=== PATIENT | male | born 1980 | race Caucasian/White ===

== ENCOUNTER 2023-10-29 06:10 | Emergency (ER) | payer BC, SELFPAY ==
[2023-10-29] VITALS (13 sets, daily range): BP systolic 154–179; BP diastolic 105–112; PULSE 70–72; RESP 18–20; TEMP 36.9; O2SAT 95–99
--- NOTE | 2023-10-29 07:13 | PC.NURSE ---
Report given to JOHNNY Chu at this time.
[2023-10-29] MEDS: KETOROLAC 30 MG/ML VIAL (*BKC) IM (07:33)
--- NOTE | 2023-10-29 08:55 | ED.GENADULT ---
HPI - General Adult General Chief complaint: Extremity Injury, Upper Stated complaint: right arm pain Time Seen by Provider: 10/29/23 06:56 Source: patient Mode of arrival: ambulatory Limitations: no limitations History of Present Illness HPI narrative: 43-year-old otherwise healthy here with a complaint of right shoulder and scapular pain for past 1 week. Patient states that he was doing [place] a week ago and he might have injured while he was doing in ever since then he has been having constant pain. Patient states that he went to Urgent Care was given ibuprofen and muscle relaxer which does not seem to be helping. He has stated he was unable to sleep last night because of pain. He denies any chest pain or shortness of breath. Every time he moves the shoulder he gets severe pain in his back Onset (ago): week(s) (1) Location: neck, back (Upper back) and upper extremity Radiation: back Severity: moderate Severity scale (1-10): 8 Quality: aching Pain Consistency: constant Relieving factors: none Exacerbating factors: movement Associated symptoms: denies other symptoms Treatments prior to arrival: NSAID Related Data Allergies Allergy/AdvReac Type Severity Reaction Status Date / Time No Known Allergies Allergy Verified 10/29/23 06:31 Review of Systems Constitutional: Constitutional: Reports no additional constitutional complaints Eyes: Eyes: Reports no additional eye complaints ENT: Reports system reviewed and no additional complaints, except as documented Cardiovascular: Cardiovascular: Reports no additional cardiovascular complaints Respiratory: Respiratory: Reports no additional respiratory complaints Gastrointestinal: Gastrointestinal: Reports no additional gastrointestinal complaints Musculoskeletal: Musculoskeletal: Reports as per HPI Integumentary/Breasts: Skin/Breast: Reports system reviewed and no additional complaints, except as docu Neurologic: Reports system reviewed and no additional complaints, except as documented [facility] Family History Family History Other Family history of coronary artery disease Social History Social History Smoking status: Never smoker Alcohol intake: current Exam Narrative: GENERAL: Well-appearing, well-nourished, and in no acute distress. HEAD: Normocephalic, atraumatic. EYES: PERRLA and EOMI. ENT: Nares clear, no rhinorrhea or epistaxis. Mucous membranes moist. NECK: Supple. CHEST: Clear to auscultation. No respiratory distress. HEART: Regular rate and rhythm. No murmur heard. Normal peripheral pulses. ABDOMEN: Soft, nontender, nondistended, normal active bowel sounds. EXTREMITIES: Normal range of motion. No edema. As painful ROM of the right shoulder no obvious deformity pain along the trapezius margin from the neck all the way to the scapular area SKIN: Warm, dry, no rash. NEURO: No focal deficits. Alert and oriented x3. PSYCH: Normal mood and affect. Course Course Emergency Course: Patient feeling better after Toradol IM advised him to take pain medication and muscle relaxer as prescribed, follow-up with the primary Vital Signs Vital signs: Vital Signs Temperature 36.9 C 10/29/23 06:23 Pulse Rate 70 10/29/23 06:23 Respiratory Rate 20 10/29/23 06:23 Blood Pressure 154/110 H 10/29/23 06:23 Pulse Oximetry 98 10/29/23 06:23 Oxygen Delivery Room Air 10/29/23 06:23 Temperature 36.9 C 10/29/23 06:23 Pulse Rate 72 10/29/23 09:11 Respiratory Rate 18 10/29/23 09:11 Blood Pressure 178/112 H 10/29/23 09:11 Pulse Oximetry 97 10/29/23 09:11 Oxygen Delivery Room Air 10/29/23 06:23 Medical Decision Making Vital Signs Vital Signs: Vital Signs Temperature 36.9 C 10/29/23 06:23 Pulse Rate 70 10/29/23 06:23 Respiratory Rate 20 10/29/23 06:23 Blood Pressure 154/110 H 10/29/23 06:23 Puls
== END 2023-10-29 09:30 | disposition home or self-care (01) ==
PROVIDERS: Emergency Provider Family Medicine; PCP Family Medicine
DX: S29.012A Strain of muscle and tendon of back wall of thorax, initial encounter (principal); X58.XXXA Exposure to other specified factors, initial encounter; Y93.75 Activity, martial arts
CPT/HCPCS: 96372; 99283; J1885

== ENCOUNTER 2023-11-06 15:11 | Outpatient (CLI) | payer BC, SELFPAY ==
--- NOTE | ~2023-11-06 | XR_ITS ---
EXAMINATION:XR cervical spine min 6V DATE: 11/06/2023 15:36 INDICATION: Neck pain TECHNIQUE: AP, lateral in neutral, flexion, extension, bilateral oblique, lateral swimmers and odonto id views of the cervical spine are provided. COMPARISON: None FINDINGS: There is straightening of the cervical spine which can be positional or due to muscular spa sm. There is no hypermobility with flexion or extension. Alignment is normal. The odontoid process is intact. No fracture is identified. There is mild loss of intervertebral disc space height at C5-6. V ertebral body heights and disk spaces are otherwise normal. Prevertebral soft tissues are normal. The re is mild bilateral facet joint osteoarthritis at C5-6. IMPRESSION: 1. Mild cervical spondylosis without acute findings. Reviewed, dictated and finalized at location F. ENSATION ADVISOR
== END 2023-11-06 15:12 ==
PROVIDERS: PCP Family Medicine; Visit Provider Chiropractor
DX: M47.892 Other spondylosis, cervical region (principal)
CPT/HCPCS: 72052

== ENCOUNTER 2023-12-17 07:31 | Outpatient (CLI) | payer BC, SELFPAY ==
--- NOTE | ~2023-12-17 | CT_ITS ---
EXAMINATION: CT cervical spine wo con DATE: 12/17/2023 07:50 INDICATION: Cervical disc disorder with radiculopathy. Neck pain. Right arm numbness. TECHNIQUE: Computed tomography (CT) of the cervical spine was performed without intravenous contrast. Automated exposure control and iterative reconstruction technique were employed. The dose-length pro duct was 502.81 mGy-cm. COMPARISON: Cervical spine radiographs 11/06/2023 FINDINGS: There is 6 degrees levocurvature of cervical spine. There is mild kyphosis of cervical spin e. Vertebral body heights are normal. There is mildly decreased disc height at C5-C6. There are bilat eral mastoid effusions. The following disc levels are specifically discussed: C2-C3: There is mild left uncovertebral joint osteoarthritis. There is moderate right and mild left f acet joint osteoarthritis. There is no neural foraminal stenosis. There is no central canal stenosis. C3-C4: There is moderate left uncovertebral joint osteoarthritis. There is no facet joint osteoarthri tis. There is mild left neural foraminal stenosis. There is no central canal stenosis. C4-C5: There is mild bilateral uncovertebral joint osteoarthritis. There is no facet joint osteoarthr itis. There is no neural foraminal stenosis. There is no central canal stenosis. C5-C6: There is mild right and moderate left uncovertebral joint osteoarthritis. There is mild right facet joint osteoarthritis. There is mild left neural foraminal stenosis. There is mild central canal stenosis. C6-C7: There is no uncovertebral joint osteoarthritis. There is severe right facet joint osteoarthrit is. There is no neural foraminal stenosis. There is no central canal stenosis. C7-T1: There is no uncovertebral joint osteoarthritis. There is severe bilateral facet joint osteoart hritis. There is no neural foraminal stenosis. There is no central canal stenosis. IMPRESSION: 1. Mild cervical spondylosis. Reviewed, dictated and finalized at location E.
== END 2023-12-17 07:32 | disposition home or self-care (01) ==
PROVIDERS: PCP Family Medicine; Visit Provider Family Medicine
DX: M50.10 Cervical disc disorder with radiculopathy, unspecified cervical region (principal); M47.892 Other spondylosis, cervical region
CPT/HCPCS: 72125

== ENCOUNTER 2024-08-24 00:36 | Day surgery (SDC) | payer BC, SELFPAY ==
[2024-08-13 15:04] VITALS: BMI 29.9
--- NOTE | 2024-08-13 15:15 | PC.NURSE ---
Report to the Outpatient Waiting Room, entrance under the green pavilion located off [facility], at time _1245 on date ___08/24/24____. Planned Procedure Time: __1345 .? Time changes happen often and if your time is changed the preop area will call you the afternoon before. - You and your visitor will be asked to self-screen and do not enter if you have any COVID symptoms. Please call surgeon if you need to reschedule. - A mask is optional within the hospital at this time. Per Dr Lockhart orders 1. It is alright to eat a light breafast/lunch prior to procedure depending on schedule time. Do not eat or drink anything other than scheduled medications with small amounts of clear liquid (water) for two hours prior to procedure. 2. Take a bath/shower the evening before and morning of procedure. 3. Please take your scheduled medications, especially blood pressure and diabetes medications as prescribed, with small sips of water prior to procedure. You may also take your prescribed pain medicaitons as needed. Take only the following medications with a SIP of water on the morning of surgery: _Local Procedure may take all home medications DO NOT STOP ANY OF YOUR OTHER PRESCRIPTION MEDICATIONS PRIOR TO SURGERY EXCEPT THE FOLLOWING Medications to discontinue per physician __No NSAIDS like Ibuprofen, Naproxen, Aleve for 7 Days prior. Please no make-up, nail south su[place], hairspray, perfume, deodorant, or body powder the day of surgery.? No jewelry (including any body piercings) or valuables the day of surgery, leave them at home.? Please take a shower or bath the night before, or the morning of, surgery with an antibacterial soap.? Wear comfortable, loose fitting clothing.? Children are encouraged to wear pajamas. - Jewelry must be removed prior to entering the operating room.? Rings and piercings that are not removed may be cut off. - The hospital will not accept responsibility for valuables.? - Please leave all valuables, including medications, at home the day of surgery. If you are going home after surgery, a licensed truck driver supervisor must drive you home.? - NO public transportation without another adult if you receive anesthesia. - We recommend that an adult stay with you for 24 hours following discharge. - We also recommend that you do not drive, make important decision, drink alcoholic beverages, or take any drugs that were not prescribed by your health care provider for at least 24 hours after your discharge time. For Pediatric surgeries, we recommend two adults accompany the child home. Follow any additional instructions given to you from your surgeon. Telephone instructions given to _ Ed and asked if any additional questions and then verbalized understanding. Patient advised to call surgeon office or pre surgery nurse liaison [phone] if any additional questions.
--- NOTE | ~2024-08-24 | XR_ITS ---
EXAMINATION: XR fluoroscopy no charge DATE: 08/24/2024 14:09 INDICATION: Cervical spondylosis. Chronic neck pain. TECHNIQUE: 5 intraoperative fluoroscopic views of the cervical spine were obtained. I was not present . Fluoroscopy exposure time was 1 minute 22 seconds. COMPARISON: None. FINDINGS: There is no side marker. There are needles for unilateral cervical medial branch nerve bloc ks at C6, C7, and T1. IMPRESSION: 1. Unilateral cervical medial branch nerve blocks at C6, C7, and T1. Reviewed, dictated and finalized at location A. GROWER
--- NOTE | 2024-08-24 05:57 | PM.HPGS ---
History of Present Illness History of Present Illness Consent: Risks, benefits, and alternatives have been discussed and questions answered. Patient agrees to proceed with procedure. Chief complaint: cervical spondylosis, chronic cervicalgia Narrative: Ramsey Bradford is a 44 year old male with chronic, recalcitrant and disabling left cervical pain secondary to degenerative spondylosis with failure to respond to aggressive conservative measures including PT, oral and topical analgesics, opioid and nonopioid analgesics, rest, time and activity/behavioral modification over the past 1-2 years who presents for diagnostic/prognostic medial branch blocks of the left C6, C7, T1 medial branches(#1) addressing the ipsilateral C6-7, C7-T1 facet joints under fluoroscopic guidance and with contrast control. Review of Systems Review of Systems: Patient denies any new infectious, allergic, cardiopulmonary, neurologic or constitutional symptoms or changes in activity tolerance or exercise capacity including new or progressive SOB/DAWKINS, peripheral edema, productive cough, dysuria, nausea/vomiting, diarrhea, weight change, fevers/chills/night sweats, new or progressive neurologic deficit, cognitive or mood changes since last seen, except as documented in the HPI. [facility] Past Medical History Medical History (System 07/29/24 @ 11:03 by Nuvia Gaxiola) Acute otitis media of right ear with perforated tympanic membrane AOM (acute otitis media) Elevated liver enzymes Hyperlipidemia Benign essential HTN Family History Family History Other Family history of coronary artery disease Social History Social History (System 07/29/24 @ 11:03 by Nuvia Gaxiola) Social History: Smoking status: Never smoker Second hand tobacco smoke exposure: No Alcohol intake: current Alcohol use details: Pt drinks alcohol about 1-2 times a month. 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 Specifically, patient demonstrates normal lung capacity, tidal volume and respiratory rate without wheezes, crackles, rales or rubs. Heart rate and rhythm are regular without murmurs, gallops or rubs. No JVD. Pulses 2+ globally without increasing peripheral edema. AAOx3 with no evidence of confusion, intoxication or altered mental state, NC/AT without acute distress or altered consciousness. Speech, cognition, mood, insight and judgment at baseline and within normal limits. Assessment and Plan Assessment and plan (1) Spondylosis of cervicothoracic region w/o myelopathy or radiculopathy: Code(s): M47.813 - Spondylosis without myelopathy or radiculopathy, cervicothoracic region Status: Acute Assessment and Plan: proceed as planned with diagnostic/ prognostic cervical medial branch blocks on the left at C6, C7, T1 ( # 1) to address the left C6-7, C7-T1 facet joints under fluoroscopic guidance. (2) Cervicalgia: Code(s): M54.2 - Cervicalgia Status: Acute (3) Chronic pain: Code(s): G89.29 - Other chronic pain Status: Acute
--- NOTE | 2024-08-24 06:00 | WPDHPUPDATE1 ---
History and Physical Update Update Date/Time: 08/24/24 06:00 History and Physical has been reviewed, including an updated exam of the patient. There are NO changes in the patient's condition. Risks, benefits, and alternatives have been discussed and questions answered. Patient agrees to proceed with procedure.
--- NOTE | 2024-08-24 06:03 | W.PM.PROC2 ---
Procedure Note - Detailed Date of Procedure 08/24/24 Pre-op Diagnosis cervical spondylosis, chronic cervicalgia Post-op Diagnosis Same Procedure Performed Diagnostic Right Cervical Medial Branch Nerve Blocks at C6, C7, T1 Blocking the Ipsilateral C6-7, C7-T1 facet joints under Fluoroscopic Guidance and with Contrast Control (2 levels blocked). Surgeon Tim Leija MD Sweatband Decorating Machine Operator None. Anesthesia Local Description of Procedure INFORMED CONSENT: Risks, benefits and alternatives to the procedure were discussed in detail with the patient who expressed explicit understanding and consent to proceed. Patient was informed verbally and in written form regarding the risks associated with the procedure including the low risk of serious infection, bleeding/bruising, allergic reaction, nerve or organ injury, paralysis, procedural site pain or discomfort, worsening pain and/or mobility, failure to treat and/or disfigurement. The patient expressed explicit understanding and consent to proceed. All materials required for the procedure were available prior to procedure start. Site and side were marked prior to procedure and confirmed in the presence of the patient. PROCEDURE IN DETAIL: The patient was brought to the procedural suite and placed in the prone position with head stabilized with a ProneView pillow. Patient was made comfortable with use of pillows under the head/chest, hips and ankles. Skin overlying the injection site on the affected side(s) was prepared broadly with ChloraPrep applicator and draped in a sterile manner. Aseptic technique was used throughout. The endplates of the vertebral bodies at the site(s) of interest were aligned in the AP view. Ipsilateral oblique angulation was utilized to optimize visualization of the pars interarticularis at each target site. Local anesthesia was established by infiltration with approximately 5 mL of 0.5% lidocaine via a 1-1/2 inch 27-gauge needle divided over each injection site. A 25-gauge 3.5 inch Quincke spinal needle was advanced until the needle tip contacted the periosteum of the pars interarticularis at the target site, right C6 medial branch. Lateral view was utilized to confirm the appropriate placement of the needle tip just anterior to the center point of the interarticularis. In the Lateral view, 0.25 mL of Omnipaque 300 contrast medium was injected after negative aspiration for CSF, blood or other bodily fluid, showing appropriate extra-articular spread of contrast without evidence of intravascular, foraminal or intrathecal placement. A 0.25 mL solution of 0.5% PF bupivacaine was injected after negative repeat aspiration. Appropriate spread of the injectate was confirmed with washout of previously injected contrast. No parasthesias were elicited. Needle was removed completely intact without difficulty. The same exact procedure was repeated for all remaining levels on the ipsilateral side, right C7, T1 medial branches, modified as necessary to accommodate for the new target location with identical findings and results and no evidence of complication. Images were saved and documented in the patient chart. Patient's skin was cleansed and sterile bandage applied. The patient tolerated the procedure well. The patient was transported to the recovery area in stable condition where they were observed for an appropriate amount of time prior to discharge, without evidence of complication. Patient was instructed on the appropriate completion of a pain diary over the next 12-24 hours. The patient was instructed to avoid excessive activity for the next 48 hours, including climbing and frequent use of stairs. Showers only for 48 hours. They were instructed not to drive or operate heavy machinery for 24 hours. They are to monitor for severe headaches, fevers, chills, night sweats, erythema/swelling at the site or any other signs of infection, bleeding/bruising, bowel or bladder changes as well as new pain, weakness or numbness in the upper or lower extremity. Should they notice these changes, they are instructed to call our office immediately or report directly to the nearest Emergency Department if no answer or if after posted office hours. COMPLICATIONS: None COMMENTS: None CONTRAST WASTED: 29.25mL Omnipaque 300. Complications No immediate complications Condition Stable Disposition Same day [facility] Billing Surgery - Charge Forward: Surgery Billing
[2024-08-24 12:36] VITALS: BMI 29.5
[2024-08-24 12:40] VITALS: BP 160/94; PULSE 75; RESP 18; TEMP 36.8; O2SAT 98
[2024-08-24] MEDS: BUPivacaine HCL 0.25% PF 10 ML VIAL INFILTRATE (13:39)
[2024-08-24 13:42] VITALS: BP 171/107; PULSE 70; RESP 16; O2SAT 96
[2024-08-24 13:51] VITALS: BP 154/100; PULSE 74; RESP 16; O2SAT 96
[2024-08-24 13:58] VITALS: BP 165/99; PULSE 73; RESP 16; O2SAT 95
[2024-08-24 14:07] VITALS: BP 158/91; PULSE 62; RESP 16; O2SAT 98
--- NOTE | 2024-08-24 14:48 | SUR.PHASEII ---
Patient stated, My BP runs high usually and I didn't take my medication this AM.
--- OUTSIDE RECORDS SUMMARY | 2024-08-29 09:36 | XMS_ITS | Clinical Summary ---
Author Organization [facility] [place] [address] Address [address] [place] [id number] Care Team Providers Care Bingo Checker Name Role Phone Christine Frias MD Primary Care Provider Allergies No known active allergies Medications azelastine 205.5 mcg (0.15 %) spray,non-aeros ol 205.5 mcg 2 (two) times a day Active cyclobenzaprine (FLEXERIL) 10 mg tabletIndicatio ns:Pulled muscle Take 1 tablet (10 mg total) by mouth 3 (three) times a day as needed for muscle spasms Do not drive or operate heavy machinery while taking this medication 20 tablet 4 Active Active Problems No known active problems Social History Tobacco Use Types Packs/Day Years Used Date Smoking Tobacco: Never Assessed Sex and Gender Information Value Date Recorded Sex Assigned at Not on file Legal Sex 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 Gender Identity Not on file Sexual Orientation Not on file Obstetrics History Last Filed Vital Signs Vital Sign Reading Time Taken Comments Blood Pressure 160/100 10/22/2023 8:34 AM TRIAL MANAGEMENT ASSOCIATE Pulse 79 10/22/2023 8:34 AM TRIAL MANAGEMENT ASSOCIATE Temperature 37.2 ??C (98.9 ??F) 10/22/2023 8:34 AM CS T Respiratory Rate 18 10/22/2023 8:34 AM TRIAL MANAGEMENT ASSOCIATE Oxygen Saturation 96% 10/22/2023 8:34 AM TRIAL MANAGEMENT ASSOCIATE Inhaled Oxygen Concentration - - Weight 113.4 kg (250 lb) 10/22/2023 8:34 AM TRIAL MANAGEMENT ASSOCIATE Height 193 cm (6' 4 ) 10/22/2023 8:34 AM TRIAL MANAGEMENT ASSOCIATE Body Mass Index 30.43 10/22/2023 8:34 AM TRIAL MANAGEMENT ASSOCIATE Plan of Treatment Health Maintenance Due Date Last Done Comments Colon Cancer Screening-Colonoscopy 1978 Depression Screening 1978 Hepatitis C Screening 1978 DTaP/Tdap/Td Vaccine (1 - Tdap) 1989 Hepatitis B Screening 1996 Regular Well Visit/Exam 18-64 1996 Influenza Vaccine (#1) 2024 HPV Vaccines Aged Out No longer eligi ble based on patient's age to complete this topic Pneumococcal vaccine <65 Aged Out No longer eligible based on patient's age to complete this topic Insurance [facility] Care Teams Bingo Checker Relationship Specialty Start Date End Date Christine Frias MD [address] [facility] [address] [place] [address] PCP - General Family Medicine 06/19/23
--- OUTSIDE RECORDS SUMMARY | 2024-08-29 09:36 | XMS_ITS | Encounter Summary ---
Author Organization [facility] Healthcare Address [address] [place] [id number] Care Team Providers Care Television News Anchor Name Role Phone Christine Frias MD Primary Care Provider Reason for Visit * Reason Comments Arm Injury Arm and neck chokes yesterday in class. Pain in right arm after. Encounter Details Date Type Department Care Team (Late st Contact Info) Description 10/20/2023 8:15 AM DIETITIAN RESEARCH Office Visit [facility] Medical Group Convenient Care at [address] [address] Nasreen Restrepo NP [address] [place] [id number] Pulled muscle (Primary Dx) Social History Tobacco Use Types Packs/Day Years Used Date Smoking Tobacco: Never Assessed Sex and Gender Information Value Date Recorded Sex Assigned at Not on file Legal Sex Male 4:47 PM DIETITIAN RESEARCH Gender Identity Not on file Sexual Orientation Not on file documented as of this encounter Last Filed Vital Signs Vital Sign Reading Time Taken Comments Blood Pressure 158/99 10/20/2023 8:13 AM DIETITIAN RESEARCH Pulse 79 10/20/2023 8:13 AM DIETITIAN RESEARCH Temperature 37 ??C (98.6 ??F) 10/20/2023 8:13 AM DIETITIAN RESEARCH Respiratory Rate 20 10/20/2023 8:13 AM DIETITIAN RESEARCH Oxygen Saturation 98% 10/20/2023 8:13 AM DIETITIAN RESEARCH Inhaled Oxygen Concentration - - Weight 113.4 kg (250 lb) 10/20/2023 8:13 AM DIETITIAN RESEARCH Height - - Body Mass Index 30.43 06/25/2023 9:54 AM CDT documented in this encounter Patient Instructions * Patient Instructions* aNsreen Restrepo NP - 10/20/2023 8:15 AM DIETITIAN RESEARCH Take Ibuprofen and tylenol as directed for pain and inflammation. Take Flexeril three times daily as needed for back and muscle spasms. Take this mainly at night. You cannot drive or operate heavy machinery after taking this. You may use over the counter lidocaine patches 4% commonly branded as Salon Pas or Asprecreme Lidocaine Patches as needed. Apply patch to the affected are for 12 hours and then remove for 12 hours. Follow up with primary care provider in 2 weeks or sooner if symptoms worsen. If you begin to have any numbness/tingling down the legs or loss of bowel/bladder control, go to the Emergency Room. ? ITIAN RESEARCH * Attachments The following attachments cannot be sent through Care Everywhere. * Muscle Strain (Revenue Enforcement Agent) (Kenyan) documented in this encounter Ordered Prescriptions Prescription Sig Dispense Quantity Refills Last Filled Start Date End Date cyclobenzaprine (FLEXERIL) 10 mg tabletIndications: Pulled muscle Take 1 tablet (10 mg total) by mouth 3 (three) times a day as needed for muscle spasms Do not drive or operate heavy machinery while taking this medication 20 tablet 10/20/2023 documented in this encounter Progress Notes * Nasreen Restrepo NP - 10/20/2023 8:15 AM CST Images from the original note were not included. Subjective/Objective Patient ID: Ramsey Bradford is a 43 y.o. male. Chief Complaint Arm Injury (Arm and neck chokes yesterday in class. Pain in right arm after. ) Patient presents to the clinic with reports of right upper back pain and right arm pain for 1 day. Patient reports that he was doing jujitsu yesterday and was put in a head/arm lock which caused pain. Patient denies fevers, swelling, bruising, redness, loss of sensation down legs, saddle numbness, issues with bowel or bladder, history of back surgery, vision changes, dizziness, and vomiting. He has taken Advil and ibuprofen for his symptoms. Review of Systems Constitutional: Negative for chills, fatigue and fever. Eyes: Negative for visual disturbance. Respiratory: Negative for cough. Cardiovascular: Negative for chest pain. Gastrointestinal: Negative for vomiting. Genitourinary: Negative for difficulty urinating. Musculoskeletal: Positive for arthralgias (right arm) and back pain. Negative for joint swelling, neck pain and neck stiffness. Skin: Negative for color change, rash and wound. Neurological: Negative for dizziness, weakness, numbness and headaches. Physical Exam Vitals reviewed. Constitutional: General: He is not in acute distress. Appearance: Normal appearance. He is not ill-appearing. HENT: Head: Normocephalic. Mouth/Throat: Lips: [place]. Cardiovascular: Rate and Rhythm: Normal rate. Pulmonary: Effort: Pulmonary effort is normal. Breath sounds: Normal breath sounds. Musculoskeletal: Cervical back: Spasms and tenderness present. No swelling, edema, deformity, erythema or lacerations. Thoracic back: Spasms and tenderness present. No swelling, edema or signs of trauma. Normal range of motion. Back: Comments: Tenderness with palpation and ROM of right scapula. Patient has full ROM of neck with mild tightness reported. Full ROM of right arm with mild discomfort. Skin: General: Skin is warm. Neurological: Mental Status: He is alert and oriented to person, place, and time. Psychiatric: Mood and Affect: Mood normal. Vitals: 10/20/23 0813 BP: 158/99 Pulse: 79 Resp: 20 Temp: 37 ??C (98.6 ??F) TempSrc: Oral SpO2: 98% Weight: 113.4 kg (250 lb) Assessment/Plan # muscle strain --start flexeril --use of NSAID, OTC for pain management --Discussed applying heat for pain relief, such as using a heating pad. Be careful not to burn yourself --encouraged stretching, Rest and ice --Discusses Salonpas pain patches --f/u with PCP in 1 week or sooner if symptoms worsen; or in ER if symptoms worsen or persist. Diagnoses and all orders for this visit: Pulled muscle (Primary) - cyclobenzaprine (FLEXERIL) 10 mg tablet; Take 1 tablet (10 mg total) by mouth 3 (three) times a day as needed for muscle spasms Do not drive or operate heavy machinery while taking this medication Patient Education: Take Ibuprofen and tylenol as directed for pain and inflammation. Take Flexeril three times daily as needed for back and muscle spasms. Take this mainly at night. You cannot drive or operate heavy machinery after taking this. You may use over the counter lidocaine patches 4% commonly branded as Salon Pas or Asprecreme Lidocaine Patches as needed. Apply patch to the affected are for 12 hours and then remove for 12 hours. Follow up with primary care provider in 2 weeks or sooner if symptoms worsen. If you begin to have any numbness/tingling down the legs or loss of bowel/bladder control, go to the Emergency Room. ? Disposition Treatment plan including expectations, follow up, and return precautions discussed with patient/parent, verbalizes understanding. Medication dosage, use, and potential adverse reactions discussed with patient/parent. Advised to follow up with PCP if symptoms do not resolve as expected or sooner if condition worsens. Signs/symptoms warranting ER evaluation reviewed. Patient and/or guardian was given an opportunity to ask questions, questions answered. Nasreen Restrepo NP 10/20/23 8:27 AM ITIAN RESEARCH documented in this encounter Plan of Treatment Not on file documented as of this encounter Visit Diagnoses Diagnosis Pulled muscle- Primary Unspecified site of sprain and strain documented in this encounter Care Teams Television News Anchor Relationship Specialty Start Date End Date Christine Frias MD [address] [facility] [address] [place] [id number] PCP - General Family Medicine 06/19/23 documented as of this encounter
--- OUTSIDE RECORDS SUMMARY | 2024-08-29 09:36 | XMS_ITS | Encounter Summary ---
Author Organization [facility] Healthcare Address [address] [place] [address] Care Team Providers Care Offset Label Rewinder Name Role Phone Christine Frias MD Primary Care Provider Encounter Details Date Type Department Care Team (Latest Contact Info) Description 10/22/2023 8:45 AM DOLPHIN RESEARCHER Ancillary Procedure [facility] Medical Group Imaging at [address] [address] Acute pain of right shoulder Social History Tobacco Use Types Packs/Day Years Used Date Smoking Tobacco: Never Assessed Sex and Gender Information Value Date Recorded Sex Assigned at Not on file Legal Sex Male 4:47 PM DOLPHIN RESEARCHER Gender Identity Not on file Sexual Orientation Not on file documented as of this encounter Plan of Treatment Not on file documented as of this encounter Procedures Procedure Name Priority Date/Time Associated Diagnosis Comments XR SHOULDER RIGHT 2 OR MORE VIEWS Schedule TAMMIE, Read TAMMIE (Appt Today, Awaiting Results) 10/22/2023 8:49 AM DOLPHIN RESEARCHER Acute pain of right shoulder documented in this encounter Results * XR Shoulder Right 2+ Vw (10/22/2023 8:49 AM DOLPHIN RESEARCHER) Anatomical Region Laterality Modality Upper Extremities, Shoulder Right Digi neha Radiography 10/22/2023 8:54 AM DOLPHIN RESEARCHER Narrative 10/22/2023 8:55 AM DOLPHIN RESEARCHER EXAM DESCRIPTION: XR SHOULDER RIGHT 2 OR MORE VIEWS REASON FOR STUDY: Shoulder pain, initial exam ?? Pt complains of posterior right shoulder pain x 3 days ago after doing jujitsu. No prior surgery ?? TECHNIQUE: There are 4 ??radiographic view(s) of the ??right shoulder . COMPARISON: No prior FINDINGS: Normal mineralization. ??No fracture or dislocation. 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 ??Adjacent ribs and soft tissues are unremarkable. 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 ?? THIS IS AN ELECTRONICALLY VERIFIED FINAL REPORT 10/22/2023 8:55 AM - Electronically signed by ??Luke CHRISTENSEN D: ??10/22/2023 8:55 AM T: Report ID: [id number] Reading Location: ??[id number] Procedure Note Luke Long MD - 10/22/2023 EXAM DESCRIPTION: XR SHOULDER RIGHT 2 OR MORE VIEWS REASON FOR STUDY: Shoulder pain, initial exam Pt complains of posterior right shoulder pain x 3 days ago after doing jujitsu. No prior surgery TECHNIQUE: There are 4 radiographic view(s) of the right shoulder . COMPARISON: No prior FINDINGS: Normal mineralization. No fracture or dislocation. 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 Adjacent ribs and soft tissues are unremarkable. 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 THIS IS AN ELECTRONICALLY VERIFIED FINAL REPORT 10/22/2023 8:55 AM - Electronically signed by Luke CHRISTENSEN T: Report ID: [id number] Reading Location: [id number] Angela Astudillo FEATHEREDGER AND REDUCER MACHINE IMG XR PROCEDURES Final Re sult documented in this encounter Visit Diagnoses Diagnosis Acute pain of right shoulder documented in this encounter Care Teams Offset Label Rewinder Relationship Specialty Start Date End Date Christine Frias MD [address] [facility] [address] [place] [address] PCP - General Family Medicine 06/19/23 documented as of this encounter
--- OUTSIDE RECORDS SUMMARY | 2024-08-29 09:36 | XMS_ITS | Encounter Summary ---
Author Organization [facility] Healthcare Address [address] [place] [address] Care Team Providers Care Raftsman Name Role Phone Christine Frias MD Primary Care Provider Reason for Visit * Reason Comments Arm Pain Pt c/o of continued arm pain from injury over the weekend Encounter Details Date Type Department Care Team (Late st Contact Info) Description 10/22/2023 8:45 AM WORKERS COMPENSATION COORDINATOR Office Visit [facility] Medical Group Convenient Care at [address] [address] Angela Astudillo, DRAPERY COUNSELOR [address] [place] [id number] Acute pain of right shoulder (Primary Dx) Social History Tobacco Use Types Packs/Day Years Used Date Smoking Tobacco: Never Assessed Sex and Gender Information Value Date Recorded Sex Assigned at Not on file Legal Sex Male 4:47 PM WORKERS COMPENSATION COORDINATOR Gender Identity Not on file Sexual Orientation Not on file documented as of this encounter Last Filed Vital Signs Vital Sign Reading Time Taken Comments Blood Pressure 160/100 10/22/2023 8:34 AM WORKERS COMPENSATION COORDINATOR Pulse 79 10/22/2023 8:34 AM WORKERS COMPENSATION COORDINATOR Temperature 37.2 ??C (98.9 ??F) 10/22/2023 8:34 AM CS T Respiratory Rate 18 10/22/2023 8:34 AM WORKERS COMPENSATION COORDINATOR Oxygen Saturation 96% 10/22/2023 8:34 AM WORKERS COMPENSATION COORDINATOR Inhaled Oxygen Concentration - - Weight 113.4 kg (250 lb) 10/22/2023 8:34 AM WORKERS COMPENSATION COORDINATOR Height 193 cm (6' 4 ) 10/22/2023 8:34 AM WORKERS COMPENSATION COORDINATOR Body Mass Index 30.43 10/22/2023 8:34 AM WORKERS COMPENSATION COORDINATOR documented in this encounter Patient Instructions * Patient Instructions* Angela Astudillo NP - 10/22/2023 8:45 AM WORKERS COMPENSATION COORDINATOR If you have no improvement or worsening of your symptoms, please follow up with your Primary Care Provider, [facility] Care and or Emergency Room. I strive to provide you with EXCELLENT service. You may receive a survey after your visit today. If you cannot rate your experience as EXCELLENT, please let us know how we can improve and better meet your needs. Thank you for choosing [facility]! It was my pleasure to see you today, I hope you feel better soon! Angela Astudillo [facility] Treatment of Back Pain: Take Naproxen (if prescribed) or Ibuprofen as directed for pain and inflammation. Take [...] control, go to the Emergency Room. ? A common myth about back pain is that you need to rest and avoid activity for a long time. In fact,bed rest is NOT recommended. If you have no sign of a serious cause for your back pain (such as loss of bowel or bladder control, weakness, weight loss, or fever), you should stay as active as possible. Here are some tips for how to handle back pain and activity early on: Stop normal physical activity only for the first few days. This helps calm your symptoms and reduceany swelling (inflammation) in the area of the pain. Apply heat or ice to the painful area. One good method is to use ice for the first 48 - 72 hours, then use heat after that. Take [id number] pain relievers such as ibuprofen (Advil, Motrin IB) or acetaminophen (Tylenol). Sleep in a curled-up, position with a pillow between your legs. If you usually sleep on your back, place a pillow or rolled towel under your knees to relieve pressure. Do NOT perform activities that involve heavy lifting or twisting of your back for the first 6 weeksafter the pain begins. Avoid exercise in the days right after the pain begins. After 2 - 3 weeks, however, slowly begin toexercise again (it's helpful to get advice from a physical therapist). You can start getting back to regular activities after a few days. ? To prevent back pain, it is also very important to learn to lift and bend properly. Follow these tips: If an object is too heavy or awkward, get help. Spread your feet apart to give you a wide base of support. Stand as close to the object you are lifting as possible. Bend at your knees, not at your waist. Tighten your stomach muscles as you lift the object or lower it down. Hold the object as close to your body as you can. Lift using your leg muscles. As you stand up with the object, DO NOT bend forward. DO NOT twist while you are bending for the object, lifting it up, or carrying it. Other measures to prevent back pain include: Avoid standing for long periods of time. If you must stand for your work, try using a stool. Alternate resting each foot on it. DO NOT wear high heels. Use cushioned soles when walking. When sitting for work, especially if using a computer, make sure that your chair has a straight back with an adjustable seat and back, armrests, and a swivel seat. Use a stool under your feet while sitting so that your knees are higher than your hips. Place a small pillow or rolled towel behind your lower back while sitting or driving for long periods of time. If you drive long distance, stop and walk around every hour. Bring your seat as far forward as possible to avoid bending. Don't lift heavy objects just after a ride. Quit smoking. Lose weight. Do exercises to strengthen your abdominal muscles on a regular basis. This will strengthen your core to decrease the risk of further injuries. ERS COMPENSATION COORDINATOR ERS COMPENSATION COORDINATOR * Attachments The following attachments cannot be sent through Care Everywhere. * Shoulder Pain (AfterCare(R) Instructions(ER/ED)) (Guamanian) documented in this encounter Ordered Prescriptions Prescription Sig Dispense Quantity Refills Last Filled Start Date End Date predniSONE (DELTASONE) 20 mg tabletIndications: Acute pain of right shoulder Take 1 tablet (20 mg) by mouth 2 (two) times a day for 5 days 10 tablet 10/22/2023 10/27/2023 documented in this encounter Progress Notes * Angela Astudillo, DRAPERY COUNSELOR - 10/22/2023 8:45 AM CST Images from the original note were not included. Subjective/Objective Patient ID: Ramsey Bradford is a 43 y.o. male. Chief Complaint Arm Pain (Pt c/o of continued arm pain from injury over the weekend) 43-year-old male patient presents today with complaints of right shoulder pain. Patient reports that he had an injury during Jujutsu 3 days ago. Reports some and was performing a head and arm choke on him. Reports that as he attempted to stand up began having pain and spasm. Patient was seen in this clinic on 10/20 and was given Flexeril. Patient was to follow up with his PCP if further pain however PCP told patient to return to our clinic to be further evaluated. Patient denies any radiation of pain down his arm. Denies any numbness or tingling of the right hand. Denies any new trauma. Patient has been taking the Flexeril along with lidocaine patches and ibuprofen without change in condition. Patient denies any neck pain. Reports decreased range of motion with the neck. Arm Pain Review of Systems All other systems reviewed and are negative. Physical Exam Constitutional: Appearance: Normal appearance. He is normal weight. HENT: Head: Normocephalic. Right Ear: External ear normal. Left Ear: External ear normal. Mouth/Throat: Mouth: Mucous membranes are moist. Eyes: Pupils: Pupils are equal, round, and reactive to light. Cardiovascular: Rate and Rhythm: Normal rate. Pulmonary: Effort: Pulmonary effort is normal. Musculoskeletal: General: Tenderness present. No swelling or deformity. Right lower leg: No edema. Left lower leg: No edema. Comments: Muscle spasm to right lateral neck extending into the right shoulder blade. No spinal tenderness. No pain with axial loading. Mild decreased range of motion with the right shoulder and milddecreased range of motion with lateral rotation Skin: General: Skin is warm and dry. Capillary Refill: Capillary refill takes less than 2 seconds. Neurological: General: No focal deficit present. Mental Status: He is alert and oriented to person, place, and time. Mental status is at baseline. Psychiatric: Mood and Affect: Mood normal. Behavior: Behavior normal. Thought Content: Thought content normal. Judgment: Judgment normal. Vitals: 10/22/23 0834 BP: 160/100 Pulse: 79 Resp: 18 Temp: 37.2 ??C (98.9 ??F) SpO2: 96% Weight: 113.4 kg (250 lb) Height: 193 cm (6' 4 ) No results found. No past medical history on file. Current Outpatient Medications: azelastine 205.5 mcg (0.15 %) spray,non-aerosol, 205.5 mcg 2 (two) times a day, Disp: , Rfl: cyclobenzaprine (FLEXERIL) 10 mg tablet, Take 1 tablet (10 mg total) by mouth 3 (three) times a dayas needed for muscle spasms Do not drive or operate heavy machinery while taking this medication, Disp: 20 tablet, Rfl: 0 predniSONE (DELTASONE) 20 mg tablet, Take 1 tablet (20 mg) by mouth 2 (two) times a day for 5 days,Disp: 10 tablet, Rfl: 0 No Known Allergies Social History Tobacco Use Smoking status: Not on file Smokeless tobacco: Not on file Substance and Sexual Activity Drug use: Not on file Sexual activity: Not on file Alcohol Use: Not on file No past surgical history on file. Procedures Assessment/Plan No results found for this or any previous visit (from the past 4 hour(s)). 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 Patient's physical exam is most consistent with muscular spasm. Patient is already on Flexeril. Discussed with patient to apply heat and gentle massage/stretching. Disposition Treatment plan including expectations, follow up, and return precautions discussed with patient/parent, verbalizes understanding. Medication dosage, use, and potential adverse reactions discussed with patient/parent. Advised to follow up with PCP if symptoms do not resolve as expected or sooner if condition worsens. Signs/symptoms warranting ER evaluation reviewed. Patient and/or guardian was given an opportunity to ask questions, questions answered. Angela Astudillo NP ERS COMPENSATION COORDINATOR documented in this encounter Plan of Treatment Not on file documented as of this encounter Results * XR Shoulder Right 2+ Vw (10/22/2023 8:49 AM WORKERS COMPENSATION COORDINATOR) Anatomical Region Laterality Modality Upper Extremities, Shoulder Right Digi neha Radiography 10/22/2023 8:54 AM WORKERS COMPENSATION COORDINATOR Narrative 10/22/2023 8:55 AM WORKERS COMPENSATION COORDINATOR EXAM DESCRIPTION: XR SHOULDER RIGHT 2 OR [...] D: ??10/22/2023 8:55 AM T: Report ID: [id number] Reading Location: ??[id number] Procedure Note Luke Long MD - 10/22/2023 [...] 8:55 AM - Electronically signed by Luke De LeonD. MJ T: Report ID: [id number] Reading Location: [id number] Angela Astudillo DRAPERY COUNSELOR IMG XR PROCEDURES Final Re sult documented in this encounter Visit Diagnoses Diagnosis Acute pain of right shoulder- Primary Acute pain of right shoulder documented in this encounter Care Teams Raftsman Relationship Specialty Start Date End Date Christine Frias MD [address] [facility] [address] [place] [id number] PCP - General Family Medicine 06/19/23 documented as of this encounter
--- OUTSIDE RECORDS SUMMARY | 2024-08-29 09:36 | XMS_ITS | Encounter Summary ---
Author Organization [facility] Healthcare Address [address] [place] [address] Care Team Providers Care Radial Drill Operator Name Role Phone Christine Frias MD Primary Care Provider Reason for Visit * Reason Comments Ear Problem Pt was seen here on 06/19 for bilateral ear problem. Was prescribed a 5 day dose of prednisone. He says that his s/s have never gotten better and in fact his L ear is worse.Onset x2 weeksC/o Bilateral ear problem. L ear feels worse. Feels like he has water in his ears. Denies of painSelf medicating w/ allergy flonase. 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 Gender Identity Not on file Sexual Orientation Not on file documented as of this encounter Last Filed Vital Signs Vital Sign Reading Time Taken Comments Blood Pressure 128/84 06/25/2023 9:54 AM CDT Pulse 78 06/25/2023 9:54 AM CDT Temperature - - Respiratory Rate 16 06/25/2023 9:54 AM CDT Oxygen Saturation 98% 06/25/2023 9:54 AM CDT Inhaled Oxygen Concentration - - Weight 119.2 kg (262 lb 12.8 oz) 06/25/2023 9:54 AM CDT Height 193 cm (6' 4 ) 06/25/2023 9:54 AM CDT Body Mass Index 31.99 06/25/2023 9:54 AM CDT documented in this encounter Patient Instructions * Patient Instructions* Desi Milan PA - 06/25/2023 10:00 AM CDT -continue flonase AM and PM -zyrtec (cetirizine) daily in AM -take total of 120 mg of pseudoephedrine (sudafed) in the AM (may take up to 240 mg in a 24 hour period) -take antibiotic as directed * Attachments The following attachments cannot be sent through Care Everywhere. * Ear Infection (AfterCare(R) Instructions(ER/ED)) (Nepali) documented in this encounter Ordered Prescriptions Prescription Sig Dispense Quantity Refills Last Filled Start Date End Date amoxicillin-clavul anate (AUGMENTIN) 875-125 mg per tablet Take 1 tablet by mouth 2 (two) times a day for 7 days 14 tablet 06/25/2023 07/02/2023 documented in this encounter Progress Notes * Desi Milan PA - 06/25/2023 10:00 AM CDT Images from the original note were not included. Subjective/Objective Patient ID: Ramsey Bradford is a 42 y.o. male. Chief Complaint Ear Problem (Pt was seen here on 06/19 for bilateral ear problem. Was prescribed a 5 day dose of prednisone. He says that his s/s have never gotten better and in fact his L ear is worse./Onset x2 weeks/C/o Bilateral ear problem. L ear feels worse. Feels like he has water in his ears. /Denies of pain/Self medicating w/ allergy flonase.) Pt presents w/ bilateral ear fullness, L>R x 4 weeks. No pain or drainage. Seen 6 days ago, had clear middle ear fluid, started on prednisone w/ no relief. Using flonase w/ minimal relief. No fever. Does admit to mild nasal congestion, otherwise no URI symptoms. Review of Systems All systems reviewed and are negative or non contributory for this patient's presentation today other than as stated in the HPI . Physical Exam Constitutional: General: He is not in acute distress. HENT: Head: Normocephalic and atraumatic. Ears: Comments: Purulent effusions bilaterally, L TM erythematous Mouth/Throat: Pharynx: Oropharynx is clear. Eyes: Pupils: Pupils are equal, round, and reactive to light. Cardiovascular: Rate and Rhythm: Normal rate. Pulmonary: Effort: Pulmonary effort is normal. Musculoskeletal: General: Normal range of motion. Cervical back: Normal range of motion. Skin: General: Skin is warm and dry. Neurological: General: No focal deficit present. Mental Status: He is alert and oriented to person, place, and time. Psychiatric: Mood and Affect: Mood normal. Behavior: Behavior normal. Vitals: 06/25/23 0954 BP: 128/84 BP Location: Right arm Patient Position: Sitting Pulse: 78 Resp: 16 SpO2: 98% Weight: 119.2 kg (262 lb 12.8 oz) Height: 193 cm (6' 4 ) Assessment/Plan -purulent effusions bilaterally, L TM erythematous, start augmentin -continue flonase -add zyrtec and sudafed Diagnoses and all orders for this visit: Non-recurrent acute suppurative otitis media of left ear without spontaneous rupture of tympanic membrane (Primary) Other orders - amoxicillin-clavulanate (AUGMENTIN) 875-125 mg per tablet; Take 1 tablet by mouth 2 (two) times a day for 7 days No results found for this or any previous visit (from the past 4 hour(s)). Disposition Treatment plan including expectations, follow up, and return precautions discussed with patient/parent, verbalizes understanding. Medication dosage, use, and potential adverse reactions discussed with patient/parent. Advised to follow up with PCP if symptoms do not resolve as expected or sooner if condition worsens. Signs/symptoms warranting ER evaluation reviewed. Patient and/or guardian was given an opportunity to ask questions, questions answered. ARIEL Morocho 06/25/23 10:13 AM documented in this encounter Plan of Treatment Not on file documented as of this encounter Visit Diagnoses Diagnosis Non-recurrent acute suppurative otitis media of left ear without spontaneous rupture of tympanic membrane- Primary documented in this encounter Historical Medications * This list may reflect changes made after this encounter. azelastine 205.5 mcg (0.15 %) spray,non-aerosol 205.5 mcg 2 (two) times a day added in this encounter Care Teams Radial Drill Operator Relationship Specialty Start Date End Date Christine Frias MD [address] [facility] [address] [place] [address] PCP - General Family Medicine 06/19/23 documented as of this encounter
--- OUTSIDE RECORDS SUMMARY | 2024-08-29 09:36 | XMS_ITS | Referral Summary ---
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 Gender Identity Not on file Sexual Orientation Not on file Last Filed Vital Signs Vital Sign Reading Time Taken Comments Blood Pressure 160/100 10/22/2023 8:34 AM SYSTEMS INTEGRATION ADVISOR Pulse 79 10/22/2023 8:34 AM SYSTEMS INTEGRATION ADVISOR Temperature 37.2 ??C (98.9 ??F) 10/22/2023 8:34 AM CS T Respiratory Rate 18 10/22/2023 8:34 AM SYSTEMS INTEGRATION ADVISOR Oxygen Saturation 96% 10/22/2023 8:34 AM SYSTEMS INTEGRATION ADVISOR Inhaled Oxygen Concentration - - Weight 113.4 kg (250 lb) 10/22/2023 8:34 AM SYSTEMS INTEGRATION ADVISOR Height 193 cm (6' 4 ) 10/22/2023 8:34 AM SYSTEMS INTEGRATION ADVISOR Body Mass Index 30.43 10/22/2023 8:34 AM SYSTEMS INTEGRATION ADVISOR Plan of Treatment Not on file Insurance [facility] Care Teams Permit Specialist Relationship Specialty Start Date End Date Christine Frias MD [address] [facility] [address] [place] [address] PCP - General Family Medicine 06/19/23
--- OUTSIDE RECORDS SUMMARY | 2024-08-29 09:36 | XMS_ITS | Encounter Summary ---
Author Organization [facility] Address [address] [place] [id number] Care Team Providers Care Quality Assurance Assistant Name Role Phone Christine Frias MD Primary Care Provider Reason for Visit * Reason Comments Ear Problem Pt c/o bilateral ear fullness for 4-5 days. 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 Gender Identity Not on file Sexual Orientation Not on file documented as of this encounter Last Filed Vital Signs Vital Sign Reading Time Taken Comments Blood Pressure 136/90 06/19/2023 4:59 PM CDT Pulse 68 06/19/2023 4:59 PM CDT Temperature 36.9 ??C (98.5 ??F) 06/19/2023 4:59 PM CD T Respiratory Rate 24 06/19/2023 4:59 PM CDT Oxygen Saturation 98% 06/19/2023 4:59 PM CDT Inhaled Oxygen Concentration - - Weight 122.5 kg (270 lb) 06/19/2023 4:59 PM CDT Height 193 cm (6' 4 ) 06/19/2023 4:59 PM CDT Body Mass Index 32.87 06/19/2023 4:59 PM CDT documented in this encounter Patient Instructions * Patient Instructions* Patrick Little NP - 06/19/2023 5:15 PM CDT -flonase 2 sprays each nostril daily as needed -claritin daily In most cases, serous otitis resolves spontaneously without treatment. In a small percentage of cases, the effusion persists and requires additional intervention, such as pressure equalization tubes. In adults, seasonal allergies and/or an upper respiratory tract infection can induce eustachian tube dysfunction. As a result, some times decongestants, antihistamines, and/or nasal steroids may be beneficial. Your symptoms should resolve within approximately 12 weeks. However, if your symptoms persist greater than 12 weeks, or you begin to have additional symptoms such as: ear pain, fever, decreased hearing, and/or fluid draining from your ear seek medical attention as soon as possible If you have no improvement or worsening of your symptoms, please follow up with your Primary Care Provider, [facility] Care and or Emergency Room. I strive to provide you with EXCELLENT service. You may receive a survey after your visit today. If you cannot rate your experience as EXCELLENT, please let us know how we can improve and better meet your needs. Thank you for choosing [facility]! It was my pleasure to see you today, I hope you feel better soon! Patrick Little FUNDRAISING DIRECTOR documented in this encounter Ordered Prescriptions Prescription Sig Dispense Quantity Refills Last Filled Start Date End Date predniSONE (DELTASONE) 20 mg tabletIndications: Bilateral acute serous otitis media, recurrence not specified Take 2 tablets (40 mg) by mouth daily for 5 days 10 tablet 06/19/2023 3 documented in this encounter Progress Notes * Patrick Little NP - 06/19/2023 5:15 PM CDT Images from the original note were not included. Subjective/Objective Patient ID: Ramsey Bradford is a 42 y.o. male. Chief Complaint Ear Problem (Pt c/o bilateral ear fullness for 4-5 days. wants script, denies any drainage from ears) Pt presents to [facility] URI This is a new problem. Episode onset: Started with Upper respiratory infection symptoms approximately a week and a half ago, and then 4-5 days ago both ears became clogged, pressure with decreased hearing. Patient states overall Upper respiratory infection symptoms are improving. There has been no fever. Pertinent negatives include no abdominal pain, chest pain, congestion, coughing, diarrhea, ear pain, headaches, nausea, neck pain, rash, rhinorrhea, shortness of breath, sinus pain, sneezing, sore throat, vomiting or wheezing. He has tried decongestant (Nigp-[id number] ear drops) for the symptoms. The treatment provided no relief. Review of Systems Constitutional: Negative for appetite change, chills, diaphoresis, fatigue and fever. HENT: Negative for congestion, ear discharge, ear pain, postnasal drip, rhinorrhea, sinus pressure,sinus pain, sneezing, sore throat and trouble swallowing. Bilateral ears feel clogged, decreased hearing and muffled, Respiratory: Negative for cough, chest tightness, shortness of breath and wheezing. Cardiovascular: Negative for chest pain. Gastrointestinal: Negative for abdominal pain, diarrhea, nausea and vomiting. Musculoskeletal: Negative for myalgias, neck pain and neck stiffness. Skin: Negative for rash. Neurological: Negative for dizziness and headaches. Hematological: Negative for adenopathy. Physical Exam Vitals and nursing note reviewed. Constitutional: General: He is awake. He is not in acute distress. Appearance: Normal appearance. HENT: Head: Normocephalic and atraumatic. Right Ear: Ear canal normal. A middle ear effusion is present. Tympanic membrane is not perforated,erythematous, retracted or bulging. Left Ear: Ear canal normal. A middle ear effusion is present. Tympanic membrane is not perforated, erythematous, retracted or bulging. Nose: No congestion or rhinorrhea. Right Sinus: No maxillary sinus tenderness or frontal sinus tenderness. Left Sinus: No maxillary sinus tenderness or frontal sinus tenderness. Mouth/Throat: Lips: [place]. Mouth: Mucous membranes are moist. Tongue: Tongue does not deviate from midline. Pharynx: Uvula midline. No pharyngeal swelling, oropharyngeal exudate, posterior oropharyngeal erythema or uvula swelling. Tonsils: No tonsillar exudate or tonsillar abscesses. Eyes: General: Lids are normal. Pupils: Pupils are equal, round, and reactive to light. Cardiovascular: Rate and Rhythm: Normal rate and regular rhythm. Pulses: Normal pulses. Heart sounds: Normal heart sounds. Pulmonary: Effort: Pulmonary effort is normal. No respiratory distress. Breath sounds: Normal breath sounds. No decreased breath sounds, wheezing, rhonchi or rales. Musculoskeletal: Cervical back: Full passive range of motion without pain, normal range of motion and neck supple. Lymphadenopathy: Cervical: No cervical adenopathy. Skin: General: Skin is warm and dry. Neurological: Mental Status: He is alert and oriented to person, place, and time. Gait: Gait normal. Psychiatric: Behavior: Behavior is cooperative. Vitals: 06/19/23 1659 BP: 136/90 Pulse: 68 Resp: 24 Temp: 36.9 ??C (98.5 ??F) SpO2: 98% Weight: 122.5 kg (270 lb) Height: 193 cm (6' 4 ) No results found. No past medical history on file. Current Outpatient Medications: predniSONE (DELTASONE) 20 mg tablet, Take 2 tablets (40 mg) by mouth daily for 5 days, Disp: 10 tablet, Rfl: 0 No Known Allergies Social History Tobacco Use Smoking status: Not on file Smokeless tobacco: Not on file Substance and Sexual Activity Drug use: Not on file Sexual activity: Not on file Alcohol Use: Not on file No past surgical history on file. Assessment/Plan Diagnoses and all orders for this visit: Bilateral acute serous otitis media, recurrence not specified (Primary) - predniSONE (DELTASONE) 20 mg tablet; Take 2 tablets (40 mg) by mouth daily for 5 days -flonase 2 sprays each nostril daily as needed -claritin daily -stop sudafed while on prednisone, as both can raise BP Patient Education: In most cases, serous otitis resolves spontaneously without treatment. In a small percentage of cases, the effusion persists and requires additional intervention, such as pressure equalization tubes. In adults, seasonal allergies and/or an upper respiratory tract infection can induce eustachian tube dysfunction. As a result, some times decongestants, antihistamines, and/or nasal steroids may be beneficial. Your symptoms should resolve within approximately 12 weeks. However, if your symptoms persist greater than 12 weeks, or you begin to have additional symptoms such as: ear pain, fever, decreased hearing, and/or fluid draining from your ear seek medical attention as soon as possible Prednisone Instructions Take this medication with food, preferably breakfast. If taken too late, this medication can cause sleeplessness. Common side effects include increased blood pressure, increased water and sodium retention, increased weight gain, mood changes, and increased blood sugar. Do not take NSAIDS while taking this medication. This includes aspirin, Aleve, Ibuprofen, Naproxen,Midol, Advil, or any medications containing Ibuprofen or aspirin. TAKE ANTACIDS 2 HOURS APART FROM PREDNISONE Go to the ER or call 911 if you experience new onset fevers, personality changes, chest pain, elevated blood pressure >160/90, uncontrollable blood sugars (in diabetics), stomach pain, severe generalized muscle pain, uncontrolled blood pressure, severe headaches, changes in vision, or seizures Risk and possible side effects of prednisone discussed with patient. Pt consents to treatment. Pt. Educated on how to take medication. Disposition Treatment plan including expectations, follow up, and return precautions discussed with patient/parent, verbalizes understanding. Medication dosage, use, and potential adverse reactions discussed with patient/parent. Advised to follow up with PCP if symptoms do not resolve as expected or sooner if condition worsens. Signs/symptoms warranting ER evaluation reviewed. Patient and/or guardian was given an opportunity to ask questions, questions answered. Patrick Little NP This office note has been partially dictated using [employer] software, and as a result portions of the record may have been created with this software. Occasional wrong-word or '[id number]' substitutions may have occurred due to the inherent limitations of voice recognition software. Read the chartcarefully and recognize, using context, where substitutions have occurred. documented in this encounter Plan of Treatment Not on file documented as of this encounter Visit Diagnoses Diagnosis Bilateral acute serous otitis media, recurrence not specified- Primary documented in this encounter Care Teams Quality Assurance Assistant Relationship Specialty Start Date End Date Christine Frias MD [address] [address] PCP - General Family Medicine 06/19/23 documented as of this encounter
== END 2024-08-24 14:32 | disposition home or self-care (01) ==
PROVIDERS: PCP Family Medicine; Visit Provider Anesthesiology Pain Medicine
PROC: (CPT 64490; principal; 2024-08-24 13:45)
DX: M47.813 Spondylosis without myelopathy or radiculopathy, cervicothoracic region (principal); G89.29 Other chronic pain; I10 Essential (primary) hypertension; E78.5 Hyperlipidemia, unspecified
CPT/HCPCS: 64490; 64491; 99199; Q9965

== ENCOUNTER 2024-11-09 01:20 | Day surgery (SDC) | payer BC, SELFPAY ==
[2024-10-28 14:37] VITALS: BMI 31.3
--- NOTE | 2024-10-28 14:55 | PC.NURSE ---
Report to the Outpatient Waiting Room, entrance under the green pavilion located off [facility], at time _1300 on date _11/09/24 . Planned Procedure Time: _1400___.? LOCAL ANES Time changes happen often and if your time is changed the preop area will call you the afternoon before. - You and your visitor will be asked to self-screen and do not enter if you have any COVID symptoms. Please call surgeon if you need to reschedule. - A mask is optional within the hospital at this time. IT IS ALRIGHT TO EAT A LIGHT BREAKFAST/LUNCH PRIOR TO THE PROCEDURE. DO NOT EAT/DRINK ANYTHING OTHER THAN MEDS W/ SMALL SIPS FOR TWO HOURS PRIOR TO PROCEDURE. - Take only the following medications with a SIP of water on the morning of surgery: _IRBESARTAN/HCTZ DO NOT STOP ANY OF YOUR OTHER PRESCRIPTION MEDICATIONS PRIOR TO SURGERY EXCEPT THE FOLLOWING Hold all vitamins and supplements for 3 days Medications to discontinue per physician ZINC, BLOOD PRESSURE SUPPORT SUPPLEMENT Date to take last dose_11/06/24 Please no make-up, nail armenian, hairspray, perfume, deodorant, or body powder the day of surgery.? No jewelry (including any body piercings) or valuables the day of surgery, leave them at home.? Please take a shower or bath the night before, or the morning of, surgery with an antibacterial soap.? Wear comfortable, loose fitting clothing - Jewelry must be removed prior to entering the operating room.? Rings and piercings that are not removed may be cut off. - The hospital will not accept responsibility for valuables.? - Please leave all valuables, including medications, at home the day of surgery. If you are going home after surgery, a licensed delivery route driver must drive you home.? - NO public transportation without another adult if you receive anesthesia. - We recommend that an adult stay with you for 24 hours following discharge. - We also recommend that you do not drive, make important decision, drink alcoholic beverages, or take any drugs that were not prescribed by your health care provider for at least 24 hours after your discharge time. Follow any additional instructions given to you from your surgeon. Telephone instructions given to _SAHIL and asked if any additional questions and then verbalized understanding. Patient advised to call surgeon office or pre surgery nurse liaison [phone] if any additional questions.
[2024-11-09 12:30] VITALS: BP 166/95; PULSE 68; RESP 14; TEMP 36.9; O2SAT 98
--- NOTE | 2024-11-09 12:38 | PM.HPGS ---
History of Present Illness History of Present Illness Consent: Risks, benefits, and alternatives have been discussed and questions answered. Patient agrees to proceed with procedure. Chief complaint: spondylosis cervical thoracic region Narrative: Ramsey Bradford is a 44 year old male with chronic, recalcitrant and disabling right cervical thoracic neck pain secondary to degenerative spondylosis with failure to respond to aggressive conservative measures including PT, oral and topical analgesics, opioid and nonopioid analgesics, rest, time and activity/behavioral modification over the past 1-2 years who presents for diagnostic/prognostic medial branch blocks of the right C6, C7, T1 medial branches/dorsal ramus(#2) addressing the ipsilateral C5 6-7, C7-T1 facet joints under fluoroscopic guidance and with contrast control. Review of Systems Review of Systems: Patient denies any new infectious, allergic, cardiopulmonary, neurologic or constitutional symptoms or changes in activity tolerance or exercise capacity including new or progressive SOB/DAWKINS, peripheral edema, productive cough, dysuria, nausea/vomiting, diarrhea, weight change, fevers/chills/night sweats, new or progressive neurologic deficit, cognitive or mood changes since last seen, except as documented in the HPI. All systems reviewed & are unremarkable except as noted in HPI and below PMFSH Past Medical History Medical History Acute otitis media of right ear with perforated tympanic membrane AOM (acute otitis media) Elevated liver enzymes Hyperlipidemia Benign essential HTN Family History Family History Other Family history of coronary artery disease Social History Social History Social History: Smoking status: Never smoker Second hand tobacco smoke exposure: No Alcohol intake: never Alcohol use details: Pt drinks alcohol about 1-2 times a month. 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 Gender identity (if verbalized by the patient): Male Sexual Orientation (if Verbalized by the Patient): Straight or Heterosexual Spiritual care concerns: No Meds Home Medications and Allergies Home Medications ?Medication ?Instructions ?Recorded ?Confirmed ?Type irbesartan 300 1 tablet PO DAILY #90 tabs 07/20/24 10/28/24 Rx mg-hydrochlorothiazide 12.5 mg tablet multivitamin 1 tablet PO DAILY 10/28/24 10/28/24 History zinc 100 mg tablet 100 mg PO DAILY IMMUNE SUPPPORT 10/28/24 10/28/24 History Allergies Allergy/AdvReac Type Severity Reaction Status Date / Time BEES Allergy Severe Anaphylaxis Uncoded 09/07/24 11:48 Exam Narrative: The patient's physical exam is essentially unchanged from prior examination on 09/07/2024. Specifically, patient demonstrates normal lung capacity, tidal volume and respiratory rate without wheezes, crackles, rales or rubs. Heart rate and rhythm are regular without murmurs, gallops or rubs. No JVD. Pulses 2+ globally without increasing peripheral edema. AAOx3 with no evidence of confusion, intoxication or altered mental state, NC/AT without acute distress or altered consciousness. Speech, cognition, mood, insight and judgment at baseline and within normal limits. 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 (2) Chronic pain: Code(s): G89.29 - Other chronic pain Status: Acute (3) Cervicalgia: Code(s): M54.2 - Cervicalgia Status: Acute
--- NOTE | 2024-11-09 12:40 | WPDHPUPDATE1 ---
History and Physical Update Update Date/Time: 11/09/24 12:40 History and Physical has been reviewed, including an updated exam of the patient. There are NO changes in the patient's condition. Risks, benefits, and alternatives have been discussed and questions answered. Patient agrees to proceed with procedure.
--- NOTE | 2024-11-09 12:40 | W.PM.PROC2 ---
Procedure Note - Detailed Date of Procedure 11/09/24 Pre-op Diagnosis spondylosis cervical thoracic region Post-op Diagnosis Same Procedure Performed Diagnostic Right Cervical Medial Branch Nerve Blocks at C6, C7, T1 Blocking the Ipsilateral C6-7, C7-T1 facet joints under Fluoroscopic Guidance and with Contrast Control (2 levels blocked). Surgeon Tim Leija MD Concrete Pourer None. Anesthesia Local Description of Procedure INFORMED CONSENT: Risks, benefits and alternatives to the procedure were discussed in detail with the patient who expressed explicit understanding and consent to proceed. Patient was informed verbally and in written form regarding the risks associated with the procedure including the low risk of serious infection, bleeding/bruising, allergic reaction, nerve or organ injury, paralysis, procedural site pain or discomfort, worsening pain and/or mobility, failure to treat and/or disfigurement. The patient expressed explicit understanding and consent to proceed. All materials required for the procedure were available prior to procedure start. Site and side were marked prior to procedure and confirmed in the presence of the patient. PROCEDURE IN DETAIL: The patient was brought to the procedural suite and placed in the prone position with head stabilized with a ProneView pillow. Patient was made comfortable with use of pillows under the head/chest, hips and ankles. Skin overlying the injection site on the affected side(s) was prepared broadly with ChloraPrep applicator and draped in a sterile manner. Aseptic technique was used throughout. The endplates of the vertebral bodies at the site(s) of interest were aligned in the AP view. Ipsilateral oblique angulation was utilized to optimize visualization of the pars interarticularis at each target site. Local anesthesia was established by infiltration with approximately 5 mL of 0.5% lidocaine via a 1-1/2 inch 27-gauge needle divided over each injection site. A 25-gauge 3.5 inch Quincke spinal needle was advanced until the needle tip contacted the periosteum of the pars interarticularis at the target site, right C6 medial branch. Lateral view was utilized to confirm the appropriate placement of the needle tip just anterior to the center point of the interarticularis. In the Lateral view, 0.25 mL of Omnipaque 300 contrast medium was injected after negative aspiration for CSF, blood or other bodily fluid, showing appropriate extra-articular spread of contrast without evidence of intravascular, foraminal or intrathecal placement. A 0.25 mL solution of 2.0% PF lidocaine was injected after negative repeat aspiration. Appropriate spread of the injectate was confirmed with washout of previously injected contrast. No parasthesias were elicited. Needle was removed completely intact without difficulty. The same exact procedure was repeated for all remaining levels on the ipsilateral side, right C7, T1 medial branches, modified as necessary to accommodate for the new target location with identical findings and results and no evidence of complication. Images were saved and documented in the patient chart. Patient's skin was cleansed and sterile bandage applied. The patient tolerated the procedure well. The patient was transported to the recovery area in stable condition where they were observed for an appropriate amount of time prior to discharge, without evidence of complication. Patient was instructed on the appropriate completion of a pain diary over the next 12-24 hours. The patient was instructed to avoid excessive activity for the next 48 hours, including climbing and frequent use of stairs. Showers only for 48 hours. They were instructed not to drive or operate heavy machinery for 24 hours. They are to monitor for severe headaches, fevers, chills, night sweats, erythema/swelling at the site or any other signs of infection, bleeding/bruising, bowel or bladder changes as well as new pain, weakness or numbness in the upper or lower extremity. Should they notice these changes, they are instructed to call our office immediately or report directly to the nearest Emergency Department if no answer or if after posted office hours. COMPLICATIONS: None COMMENTS: None CONTRAST WASTED: 29.25 mL Omnipaque 300. Complications No immediate complications Condition Stable Disposition Same day [facility] Billing Surgery - Charge Forward: Surgery Billing
[2024-11-09 13:40] VITALS: BP 164/108; PULSE 62; RESP 16; O2SAT 96
[2024-11-09 13:45] VITALS: BP 183/104; PULSE 61; RESP 16; O2SAT 96
[2024-11-09] MEDS: LIDOCAINE 2% LOCAL INJ 20 ML VIAL INFILTRATE (13:45)
[2024-11-09 13:50] VITALS: BP 178/104; PULSE 62; RESP 16; O2SAT 95
[2024-11-09 13:56] VITALS: BP 160/100; PULSE 65; O2SAT 98
== END 2024-11-09 14:14 | disposition home or self-care (01) ==
PROVIDERS: PCP Family Medicine; Visit Provider Anesthesiology Pain Medicine
PROC: (CPT 64490; principal; 2024-11-09 14:00)
DX: M47.813 Spondylosis without myelopathy or radiculopathy, cervicothoracic region (principal); G89.29 Other chronic pain; M54.2 Cervicalgia
CPT/HCPCS: 64490; 64491; 99199; J2003; Q9965

== ENCOUNTER 2024-12-25 09:01 | Outpatient (CLI) | payer BC, SELFPAY ==
[2024-12-25 09:24] LABS: Anion Gap 11 mmol/L (4-12); Blood Urea Nitrogen 19 mg/dL (9-20); Calcium 9.9 mg/dL (8.4-10.2); Carbon Dioxide 25 mmol/L (22-30); Chloride 102 mmol/L (98-107); Estimated Glomerular Filt Rate > 60; Glucose 95 mg/dL (65-110); Potassium 4.6 mmol/L (3.4-5.0); Sodium 138 mmol/L (137-145)
== END 2024-12-25 09:02 | disposition home or self-care (01) ==
LOC: ANHLAB 09:03
PROVIDERS: PCP Family Medicine; Visit Provider Anesthesiology
DX: Z01.818 Encounter for other preprocedural examination (principal); G89.29 Other chronic pain
CPT/HCPCS: 36415; 80048

== ENCOUNTER 2024-12-29 03:13 | Day surgery (SDC) | payer BC, SELFPAY ==
[2024-12-18 14:37] VITALS: BMI 31.3
--- NOTE | 2024-12-18 14:38 | PC.NURSE ---
Report to the Outpatient Waiting Room, entrance under the green pavilion located off [facility], at time ___0600____ on date ____12/29/2024___. Planned Procedure Time: ___07 .? Time changes happen often and if your time is changed the preop area will call you the afternoon before. - You and your visitor will be asked to self-screen and do not enter if you have any COVID symptoms. Please call surgeon if you need to reschedule. - A mask is optional within the hospital at this time. Patients may have clear liquids (water, carbonated beverages, clear teas, apple juice) until 3 hours prior to surgery with a maximum of 20 ounces. - No food from midnight until time of surgery and no smoking, or chewing tobacco (or any form of nicotine). No chewing gum, candy or mints. Take only the following medications with a SIP of water on the morning of surgery: none DO NOT STOP ANY OF YOUR OTHER PRESCRIPTION MEDICATIONS PRIOR TO SURGERY EXCEPT THE FOLLOWING Hold all vitamins and supplements for 3 days per anesthesiologist. Medications to discontinue per physician hold irbesartan-hydrochlorothiazide the morning of procedure____ Please no make-up, nail pakistani, hairspray, perfume, deodorant, or body powder the day of surgery.? No jewelry (including any body piercings) or valuables the day of surgery, leave them at home.? Please take a shower or bath the night before, or the morning of, surgery with an antibacterial soap.? Wear comfortable, loose fitting clothing.? - Jewelry must be removed prior to entering the operating room.? Rings and piercings that are not removed may be cut off. - The hospital will not accept responsibility for valuables.? - Please leave all valuables, including medications, at home the day of surgery. If you are going home after surgery, a licensed log truck driver must drive you home.? - NO public transportation without another adult if you receive anesthesia. - We recommend that an adult stay with you for 24 hours following discharge. - We also recommend that you do not drive, make important decision, drink alcoholic beverages, or take any drugs that were not prescribed by your health care provider for at least 24 hours after your discharge time. Follow any additional instructions given to you from your surgeon. Telephone instructions given to ____Ramsey Ward and asked if any additional questions and then verbalized understanding. Patient advised to call surgeon office or pre surgery nurse liaison [phone] if any additional questions.
--- NOTE | 2024-12-18 15:54 | PC.NURSE ---
Report to the Outpatient Waiting Room, entrance under the green pavilion located off [facility], at time ___0600____ on date ____12/29/2024___. Planned Procedure Time: ___0730 .? Time changes happen often and if your time is changed the preop area will call you the afternoon before. - You and your visitor will be asked to self-screen and do not enter if you have any COVID symptoms. Please call surgeon if you need to reschedule. - A mask is optional within the hospital at this time. - NPO (No food or drink) from midnight until time of surgery and no smoking, or chewing tobacco (or any form of nicotine). No chewing gum, candy or mints. Take only the following medications with a SIP of water on the morning of surgery: none DO NOT STOP ANY OF YOUR OTHER PRESCRIPTION MEDICATIONS PRIOR TO SURGERY EXCEPT THE FOLLOWING Hold all vitamins and supplements for 3 days per anesthesiologist. Medications to discontinue per physician hold irbesartan-hydrochlorothiazide the morning of procedure____ Please no make-up, nail serbian, hairspray, perfume, deodorant, or body powder the day of surgery.? No jewelry (including any body piercings) or valuables the day of surgery, leave them at home.? Please take a shower or bath the night before, or the morning of, surgery with an antibacterial soap.? Wear comfortable, loose fitting clothing.? - Jewelry must be removed prior to entering the operating room.? Rings and piercings that are not removed may be cut off. - The hospital will not accept responsibility for valuables.? - Please leave all valuables, including medications, at home the day of surgery. If you are going home after surgery, a licensed passenger coach driver must drive you home.? - NO public transportation without another adult if you receive anesthesia. - We recommend that an adult stay with you for 24 hours following discharge. - We also recommend that you do not drive, make important decision, drink alcoholic beverages, or take any drugs that were not prescribed by your health care provider for at least 24 hours after your discharge time. Follow any additional instructions given to you from your surgeon. Telephone instructions given to ____Ramsey Ward and asked if any additional questions and then verbalized understanding. Patient advised to call surgeon office or pre surgery nurse liaison [phone] if any additional questions.
--- NOTE | ~2024-12-29 | XR_ITS ---
XR fluoroscopy no charge Indication: Cervical ablation TECHNIQUE: Fluoroscopy used during cervical ablation performed by [Tim Leija MD] on 2024. Fluoroscopy time of 1 minute 40 seconds with 4 fluoroscopic images captured. FINDINGS: Correlate with procedure note. IMPRESSION: Fluoroscopy used during cervical ablation. Reviewed, dictated and finalized at location A.
--- OUTSIDE RECORDS SUMMARY | 2024-12-29 03:15 | XMS_ITS | Clinical Summary ---
Author Organization [facility] [address] Address [address] [place] [id number] Care Team Providers Care Cellar Hand Name Role Phone Christine Frias MD Primary [...] on file Legal Sex Male 4:47 PM HAND DRAWER IN Gender Identity Not on file Sexual Orientation Not on file Obstetrics History Last Filed Vital Signs Vital Sign Reading Time Taken Comments Blood Pressure 160/100 10/22/2023 8:34 AM HAND DRAWER IN Pulse 79 10/22/2023 8:34 AM HAND DRAWER IN Temperature 37.2 C (98.9 F) 10/22/2023 8:34 AM HAND DRAWER IN Respiratory Rate 18 10/22/2023 8:34 AM HAND DRAWER IN Oxygen Saturation 96% 10/22/2023 8:34 AM HAND DRAWER IN Inhaled Oxygen Concentration - - Weight 113.4 kg (250 lb) 10/22/2023 8:34 AM HAND DRAWER IN Height 193 cm (6' 4 ) 10/22/2023 8:34 AM HAND DRAWER IN Body Mass Index 30.43 10/22/2023 8:34 AM HAND DRAWER IN Plan of Treatment Health Maintenance Due Date [...] patient's age to complete this topic Insurance [facility] Care Teams Cellar Hand Relationship Specialty Start Date End Date Christine Frias MD [address] [facility] [address] [place] [address] PCP - General Family Medicine 06/19/23
--- OUTSIDE RECORDS SUMMARY | 2024-12-29 03:15 | XMS_ITS | Referral Summary ---
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 Gender Identity Not on file Sexual Orientation Not on file Last Filed Vital Signs Vital Sign Reading Time Taken Comments Blood Pressure 160/100 10/22/2023 8:34 AM BARREL INSPECTOR Pulse 79 10/22/2023 8:34 AM BARREL INSPECTOR Temperature 37.2 C (98.9 F) 10/22/2023 8:34 AM BARREL INSPECTOR Respiratory Rate 18 10/22/2023 8:34 AM BARREL INSPECTOR Oxygen Saturation 96% 10/22/2023 8:34 AM BARREL INSPECTOR Inhaled Oxygen Concentration - - Weight 113.4 kg (250 lb) 10/22/2023 8:34 AM BARREL INSPECTOR Height 193 cm (6' 4 ) 10/22/2023 8:34 AM BARREL INSPECTOR Body Mass Index 30.43 10/22/2023 8:34 AM BARREL INSPECTOR Plan of Treatment Not on file Insurance [facility] Care Teams Commercial Glazier Relationship Specialty Start Date End Date Christine Frias MD [address] [facility] [address] [place] [address] PCP - General Family Medicine 06/19/23
[2024-12-29 06:15] VITALS: BP 154/93; PULSE 62; RESP 16; TEMP 36.8; O2SAT 97
--- NOTE | 2024-12-29 06:51 | P.PNAN_ITS ---
Anes - Initial Pre Proc Eval Procedure: Operation Date: 12/29/24 07:30 Proposed Procedures p Thermal Radio Frequency Ablation Bilateral C6, C7, T1 Medial Branch Addressing Bilateral C6-C7, C7-T1 Facet Joints Under Fluoroscopic Guidance - Tim Leija MD Date/Time: 12/29/24 06:51 Surgeon: Tim Leija MD Pre Op Diagnosis: spondyloisis w/o mylopathy or radicu of cerv thor Patient Data Age: 44 Gender: M Height: 1.91 m Weight: 113.6 kg Allergies Allergy/AdvReac Type Severity Reaction Status Date / Time BEES Allergy Severe Anaphylaxis Uncoded 12/18/24 14:25 Home Medications ?Medication ?Instructions ?Recorded ?Confirmed ?Type irbesartan 300 1 tablet PO DAILY #90 tabs 07/20/24 12/18/24 Rx mg-hydrochlorothiazide 12.5 mg tablet multivitamin 1 tablet PO DAILY 10/28/24 12/18/24 History zinc 100 mg tablet 100 mg PO DAILY IMMUNE SUPPPORT 10/28/24 12/18/24 History Patient hx anesthesia problems: none Family hx anesthesia problems: none Results Review: All pre-operative results and documents have been reviewed as part of the pre- operative evaluation. PENDING SALE TO [facility] Past Medical History Medical History Acute otitis media of right ear with perforated tympanic membrane AOM (acute otitis media) Elevated liver enzymes Hyperlipidemia Benign essential HTN Family History Family History Other Family history of coronary artery disease Social History Social History Social History: Smoking status: Never smoker Second hand tobacco smoke exposure: No Alcohol intake: current Drinks per week: 2 Alcohol use details: Pt drinks alcohol about 1-2 times a month. 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 Gender identity (if verbalized by the patient): Male Sexual Orientation (if Verbalized by the Patient): Straight or Heterosexual Spiritual care concerns: No Anes - Eval Final PreProcedure Day of Procedure 12/29/24 06:51 Patient weight: obese Heart: regular rate and rhythm Lungs: clear to auscultation Airway: Mallampati scale class III Neurological: alert and oriented Last oral intake: >/= 8 hours ASA classification: III Emergent: no Anesthetic plan: proceed Anesthesia type and monitoring: general GIVS and standard monitoring Results Review: All pre-operative results and documents have been reviewed as part of the pre- operative evaluation. Informed Consent: The patient's anesthetic plan and its attendant risks and benefits were discussed with the patient/family/POA. Questions were solicited and answers provided to the satisfaction of the patient/family/POA.
--- NOTE | 2024-12-29 07:11 | P.HP_ITS ---
History of Present Illness History of Present Illness Consent: Risks, benefits, and alternatives have been discussed and questions answered. Patient agrees to proceed with procedure. Chief complaint: spondyloisis w/o mylopathy. chronic cervicalgia Narrative: Ramsey Bradford is a 44 year old male with chronic, recalcitrant and disabling bilateral cervical pain secondary to degenerative spondylosis with failure to respond to aggressive conservative measures including PT, oral and topical analgesics, opioid and nonopioid analgesics, rest, time and activity/behavioral modification over the past 1-2 years who presents for thermal RF ablation of the bilateral C6, C7. T1 medial branches addressing the bilateral C6-7, C7-T1 facet joints under fluoroscopic guidance and with contrast control. Review of Systems Review of Systems: Patient denies any new infectious, allergic, cardiopulmonary, neurologic or constitutional symptoms or changes in activity tolerance or exercise capacity including new or progressive SOB/DAWKINS, peripheral edema, productive cough, dysuria, nausea/vomiting, diarrhea, weight change, fevers/chills/night sweats, new or progressive neurologic deficit, cognitive or mood changes since last seen, except as documented in the HPI. All systems reviewed & are unremarkable except as noted in HPI and below PMFSH Past Medical History Medical History Acute otitis media of right ear with perforated tympanic membrane AOM (acute otitis media) Elevated liver enzymes Hyperlipidemia Benign essential HTN Family History Family History Other Family history of coronary artery disease Social History Social History Social History: Smoking status: Never smoker Second hand tobacco smoke exposure: No Alcohol intake: current Drinks per week: 2 Alcohol use details: Pt drinks alcohol about 1-2 times a month. 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 Gender identity (if verbalized by the patient): Male Sexual Orientation (if Verbalized by the Patient): Straight or Heterosexual Spiritual care concerns: No Meds Home Medications and Allergies Home Medications ?Medication ?Instructions ?Recorded ?Confirmed ?Type irbesartan 300 1 tablet PO DAILY #90 tabs 07/20/24 12/18/24 Rx mg-hydrochlorothiazide 12.5 mg tablet multivitamin 1 tablet PO DAILY 10/28/24 12/18/24 History zinc 100 mg tablet 100 mg PO DAILY IMMUNE SUPPPORT 10/28/24 12/18/24 History Allergies Allergy/AdvReac Type Severity Reaction Status Date / Time BEES Allergy Severe Anaphylaxis Uncoded 12/18/24 14:25 Exam Narrative: The patient's physical exam is essentially unchanged from prior examination on 11/23/24. Specifically, patient demonstrates normal lung capacity, tidal volume and respiratory rate without wheezes, crackles, rales or rubs. Heart rate and rhythm are regular without murmurs, gallops or rubs. No JVD. Pulses 2+ globally without increasing peripheral edema. AAOx3 with no evidence of confusion, intoxication or altered mental state, NC/AT without acute distress or altered consciousness. Speech, cognition, mood, insight and judgment at baseline and within normal limits. Assessment and Plan Assessment and plan (1) Cervical spondylosis: Code(s): M47.812 - Spondylosis without myelopathy or radiculopathy, cervical region Status: Acute Assessment and Plan: proceed as planned with thermal RF ablation of the bilateral C6, C7. T1 medial branches addressing the bilateral C6-7, C7-T1 facet joints under fluoroscopic guidance and with contrast control. (2) Cervicalgia: Code(s): M54.2 - Cervicalgia Status: Acute (3) Chronic pain: Code(s): G89.29 - Other chronic pain Status: Acute
--- NOTE | 2024-12-29 07:14 | WPDHPUPDATE1 ---
History and Physical Update Update Date/Time: 12/29/24 07:14 History and Physical has been reviewed, including an updated exam of the patient. There are NO changes in the patient's condition. Risks, benefits, and alternatives have been discussed and questions answered. Patient agrees to proceed with procedure.
--- NOTE | 2024-12-29 07:15 | W.PM.PROC2 ---
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 Anesthesia Local (w/ IV Moderate Sedation) Description of Procedure INFORMED CONSENT: Risks, benefits and alternatives to the procedure were discussed in detail with the patient who expressed explicit understanding and consent to proceed. Patient was informed verbally and in written form regarding the risks associated with the procedure including the low risk of serious infection, bleeding/bruising, allergic reaction, nerve or organ injury, paralysis, procedural site pain or discomfort, worsening pain and/or mobility, failure to treat and/or disfigurement. The patient expressed explicit understanding and consent to proceed. All materials required for the procedure were available prior to procedure start. Site and side was marked prior to procedure and confirmed in the presence of the patient. PROCEDURE IN DETAIL: The patient was brought to the procedural suite and placed in the prone position with head stabilized with a horseshoe pillow and cervical ramp. Patient was made comfortable with use of pillows under the head/chest, hips and ankles. Skin overlying the injection site on the affected side(s) was prepared broadly with 10mL tinted ChloraPrep applicator and draped in a sterile manner. Strict aseptic technique was utilized throughout. The endplates of the vertebral bodies at the site(s) of interest were aligned in the AP view. Ipsilateral oblique angulation was utilized to optimize visualization of the pars interarticularis at each target site. Local anesthesia was established by infiltration with approximately 5 mL of 1% lidocaine via a 1-1/2 inch 27-gauge needle. An 18-gauge 100mm RF needle with curved 10mm active tip was advanced in the AP view until the needle tip contacted the periosteum of the pars interarticularis at the target site, right C6 parallel to the course of the targeted peripheral nerve branch. Lateral view was utilized to adjust and confirm the appropriate placement of the needle tip just anterior to the center point of the interarticularis, bisecting the distance between adjacent joint spaces. The appropriately-sized RF cannula was inserted into the RF needle and motor stimulation performed with no subjective or objective evidence of recruited muscle activity with stimulation up to 2.0 volts at a frequency of 2Hz. A 1.5 mL solution of 2.0% PF lidocaine was injected via the appropriately positioned RF cannula after negative aspiration. The grounding electrode was confirmed to be in place with good contact and functioning appropriately. After a 90s pause, lesioning was performed to 90 degrees centigrade for 90s ensuring lack of symptoms in the extremity throughout. Needle was withdrawn approximately 1-2 mm and rotated 180 degrees at each level. Lesioning was then repeated in a similar manner as above. The patient tolerated this well. No parasthesias were elicited. Needle was removed completely intact without difficulty. The same procedure was then repeated for all intended levels/ structures on the ipsilateral side, right C7, T1, with identical methodology, modified to compensate for new location, with similar results and no evidence of complication. The same procedure was then repeated for all intended levels/ structures on the contralateral side, left C6, C7, T1, with identical methodology, modified to compensate for new contralateral location/approach, with similar results and no evidence of complication. Images were saved and documented in the patient's chart. The patient's skin was cleaned and sterile bandages applied. The patient tolerated the procedure well. The patient was transported to the recovery area in stable condition where they were observed for an appropriate amount of time prior to discharge, without evidence of complication. The patient was instructed to avoid excessive activity for the next 48 hours, including overhead work, reaching and device/computer usage. Showers only for 48 hours. They were instructed not to drive or operate heavy machinery for 24 hours. They are to monitor for severe headaches, fevers, chills, night sweats, erythema/swelling at the site or any other signs of infection, bleeding/bruising, bowel or bladder changes as well as new pain, weakness or numbness in the upper or lower extremity. Should they notice these changes, they are instructed to call our office immediately or report directly to the nearest Emergency Department if no answer or if after posted office hours. Complications None Condition Stable Disposition PACU [facility] Billing Surgery - Charge Forward: Surgery Billing
[2024-12-29 07:36] VITALS: BMI 31.1
[2024-12-29] MEDS: BUPivacaine HCL 0.5% PF 30 ML VIAL 5 ML INFILTRATE (07:43)
[2024-12-29] MEDS: LIDOCAINE 2% PF LOCAL INJ 5 ML VIAL INFILTRATE (07:44)
[2024-12-29] MEDS: LIDOCAINE 1% PF INJ 5 ML VIAL INFILTRATE (07:44)
[2024-12-29 08:09] VITALS: BP 154/100; PULSE 65; RESP 14; O2SAT 96
[2024-12-29] MEDS: LACTATED RINGERS 1,000 ML 30 ML IV CONT (08:09)
[2024-12-29 08:30] VITALS: BP 151/103; PULSE 63; RESP 16; O2SAT 95
[2024-12-29 08:45] VITALS: BP 154/101; PULSE 57; RESP 16
== END 2024-12-29 08:52 | disposition home or self-care (01) ==
PROVIDERS: PCP Family Medicine; Visit Provider Anesthesiology Pain Medicine
PROC: (CPT 64633; principal; 2024-12-29 07:30)
DX: M47.812 Spondylosis without myelopathy or radiculopathy, cervical region (principal); G89.29 Other chronic pain; I10 Essential (primary) hypertension; E78.5 Hyperlipidemia, unspecified
CPT/HCPCS: 64633; 64634 ×6; 99199; J2003; J2250; J2405; J3010; J7120